=== PATIENT | female | born 1950 | race Hispanic/Latino ===

== ENCOUNTER 2019-11-24 08:00 | Observation (INO) | payer OTHER ==
[2019-11-18 15:33] LABS: BASOPHILS % (AUTO) 0.5 % (0.0-5.0); HEMATOCRIT 32.8 % (36-48); LYMPHOCYTES % (AUTO) 35.2 % (21.0-51.0); MEAN CORPUSCULAR HEMOGLOBIN 32.1 pg (27.0-33.0); MEAN CORPUSCULAR HGB CONC 34.8 g/dL (32.0-36.0); MEAN CORPUSCULAR VOLUME 92.4 fL (79-99); MONOCYTES % (AUTO) 7.9 % (3.0-13.0); NEUTROPHILS % (AUTO) 55.1 % (40.0-77.0); PLATELET COUNT (AUTO) 338 K/uL (130-400); RED BLOOD CELL COUNT(AUTO) 3.55 MIL/uL (4.00-5.50); RED CELL DISTRIBUTION WIDTH 13.2 % (11.0-15.5); WHITE BLOOD COUNT (AUTO) 7.4 K/uL (4.8-10.8)
[2019-11-18 15:42] LABS: CREATININE 0.8 mg/dL (0.5-1.5); POTASSIUM 4.1 mmol/L (3.5-5.1)
[2019-11-18 15:46] LABS: INR 1.01 (0.85-1.15); PARTIAL THROMBOPLASTIN TIME 28.3 SEC (26.3-35.5); PROTHROMBIN TIME 10.9 SEC (9.6-11.6)
[2019-11-18 15:51] LABS: APPEARANCE,URINE Clear (CLEAR); BILIRUBIN,URINE Negative (NEGATIVE); COLOR,URINE Yellow (YELLOW); GLUCOSE, URINE (UA) Negative (NEGATIVE); KETONES,URINE Negative (NEGATIVE); LEUKOCYTE ESTERASE ,URINE Negative (NEGATIVE); NITRATE,URINE Negative (NEGATIVE); OCCULT BLOOD,URINE Nonhemolyzed Trace (NEGATIVE); PROTEIN,URINE Negative (NEGATIVE); UROBILINOGEN,URINE 0.2 mg/dL (0.2-1.0)
[2019-11-18 16:18] LABS: BACTERIA,URINE Rare /HPF (None Seen); SQUAMOUS EPITHELIAL CELL,UR 0-2 /HPF (0-2); WBC,URINE 0-1 /HPF (0-1)
--- NOTE | 2019-11-23 11:30 | NUR ---
Ekg, BMP done 11/18/19 Dr Cote reviewed ekg and bmp, no new orders ok to proceed to planned procedure
[2019-11-23 13:50] VITALS: BP 165/64
--- NOTE | 2019-11-23 13:56 | NUR ---
BMP 11/18/[address] RASHID, NO NEW ORDERS PER SEDRICK
[~2019-11-24] VITALS: Ht 156.2 cm; Wt 57.2 kg
[2019-11-24] VITALS (24 sets, daily range): BP systolic 94–134; BP diastolic 51–79
[2019-11-24] MEDS: CEFAZOLIN SODIUM 1 GM VIAL IVP SCH ×3 (05:00→20:44)
[~2019-11-24 08:00] MED LIST: ALEN70TA10 PO; ASPI-1443 PO; CALC-190 PO; CALC600T15 PO; CHOL500045 PO; GENTAMICIN 80 MG/NS 100 ML PB 100 ML IV SCH; HYDR12.54 PO; IRON PEG; L.AC1CAP6 PO; MAGN250T10 PO; MONT10TA26 PO; OXYB10TA30 PO
[2019-11-24] MEDS ORDERED: SODIUM CHLORIDE 0.9% 1000ML 1,000 ML IV ONE (08:32)
[2019-11-24] MEDS ORDERED: LISI-617 PO (09:11)
[2019-11-24] MEDS ORDERED: SUCCINYLCHOLINE 200MG/10ML SYR ONE (11:13)
[2019-11-24] MEDS ORDERED: FENTANYL CITRATE PF 50 MCG/1 ML 2ML VIAL ONE (11:13)
[2019-11-24] MEDS ORDERED: PROPOFOL 10 MG/ML 20ML VIAL IV ONE (11:13)
[2019-11-24] MEDS ORDERED: LIDOCAINE PF 2% 5ML ABBOJECT ONE (11:13)
[2019-11-24] MEDS ORDERED: ROCURONIUM 10MG/1ML SYR 10 MG/ML ML ONE (11:24)
[2019-11-24] MEDS ORDERED: GLYCOPYRROLATE 1 MG/5 ML SYRINGE ONE (11:32)
[2019-11-24] MEDS ORDERED: LIDOCAINE 1%-EPI 1:100,000 20 ML VIAL IJ ONE (11:55)
[2019-11-24] MEDS ORDERED: ONDANSETRON HCL 4 MG/2 ML VIAL ONE (12:04)
[2019-11-24] MEDS ORDERED: DEXAMETHASONE SOD PHOSPHATE 4 MG/ML 1ML VIAL ONE (12:04)
[2019-11-24] MEDS ORDERED: ESTROGENS,CONJUGATED 0.625 MG/GM 42.5 GM VAG CRM VG ONE (13:20)
[2019-11-24] MEDS ORDERED: NEOSTIGMINE 5MG/5ML SYR IV ONE (13:33)
[2019-11-24] MEDS ORDERED: MORPHINE SULFATE 2 MG/ML 1ML SYG IVP PRN (15:30)
[2019-11-24] MEDS ORDERED: HYDROCODONE/ACETAMINOPHEN 7.5/325 MG TAB PO PRN ×2 (15:30)
[2019-11-24] MEDS ORDERED: SODIUM CHLORIDE 0.9% 1000ML 1,000 ML IV SCH (15:30)
--- NOTE | 2019-11-24 20:35 | NUR ---
STATUS RESTING , A,A,O, NO CONCERNS VOICED, REPOSITIONED TO LEFT SIDE, PILLOW PROPPED BETWEEN KNEES, COMFORTABLE, ENCOURAGED TO TCDB, AND TO CALL NURSE FOR ANY NEEDS Addendum: 11/25/19 at 0106 by MIGUEL JEFFERSON LVN Amended: Links added.
[2019-11-25 03:02] VITALS: BP 97/55
[2019-11-25] MEDS: CEFAZOLIN SODIUM 1 GM VIAL IVP SCH ×2 (03:59→12:00)
--- NOTE | 2019-11-25 06:15 | NUR ---
VAGINAL PACKING INDER CARE GIVEN, VAGINAL PACKING REMOVED, NO BLEEDING NOTED, TOLERATED WELL Addendum: 11/25/19 at 0640 by MIGUEL JEFFERSON LVN Amended: Links added.
[2019-11-25 08:10] VITALS: BP 115/70
--- NOTE | 2019-11-25 10:03 | NUR ---
PATIENT AMBULATING IN ROOM. NO DIZZINESS REPORTED. STEADY GAIT NOTED.
[2019-11-25 12:00] VITALS: BP 100/58
--- NOTE | 2019-11-25 12:05 | NUR ---
[id number] patient signed IM Letter, I faxed IM Letter to [phone] and placed in chart under consent tab. Addendum: 11/25/19 at 1209 by JORDYN CARRILLO CM Correction to previous note; Patient signed MORALES Letter. Morales Letter was faxed to [phone] and placed in chart under consent tab.
--- NOTE | 2019-11-25 13:20 | NUR ---
DISCHARGE INSTRUCTION READ AND EXPLAINED TO PATIENT. INSTRUCTION OVER INCISION CARE AND CATHETER CARE REVIEWED WITH PATIENT. RX FOR KEFLEX 500MG AND TRAMADOL 50MG HANDED TO PATIENT. PT VOICED UNDERSTANDING ON ALL INSTRUCTIONS.
== END 2019-11-25 13:50 | disposition home or self-care (01) ==
LOC: DAH 08:00 → WSH 08:01 → DAH 08:01 → WSH 14:55
PROVIDERS: ADMIT Urology; ATTEND Urology
DX: Z03.818 Encounter for observation for suspected exposure to other biological agents ruled out (principal); Z11.59 Encounter for screening for other viral diseases; N39.3 Stress incontinence (female) (male); N81.10 Cystocele, unspecified
CPT/HCPCS: 36415; 57288; 71045; 80048; 81001; 85025; 85610; 85730; 87088; 87635; 93005; 96365; 96375; 96376; A4213; A4215; A4221; A4222; A4223 ×2; A4344; A4600; A4663; A4930; A6260; G0378 ×17; J0330; J0690 ×3; J1100; J1580; J2001; J2405; J2704; J2710; J3010; J3490 ×2; J7030 ×2; J7120; L0625

== ENCOUNTER 2021-05-05 19:56 | Observation (INO) | payer OTHER ==
[~2021-05-05] VITALS: Ht 157.5 cm; Wt 52.7 kg
[~2021-05-05 19:56] MED LIST changes: -ALEN70TA10 PO; +ALEN70TA80 PO; +CALC-1125 PO; -CALC600T15 PO; -GENTAMICIN 80 MG/NS 100 ML PB 100 ML IV SCH; +LISI5TAB21 PO; +MONT-39 PO; -MONT10TA26 PO
[2021-05-05] MEDS ORDERED: PANTOPRAZOLE 40 MG/VIAL IVP ONE (21:00)
[2021-05-05] MEDS ORDERED: FAMOTIDINE 20MG VIAL IV ONE (21:00)
[2021-05-05] MEDS ORDERED: METOCLOPRAMIDE 10 MG/2 ML VIAL IVP ONE (21:00)
[2021-05-05] MEDS ORDERED: 0.9%NACL 1000ML 1,000 ML IV ONE (21:00)
[2021-05-05] MEDS ORDERED: ONDANSETRON 4MG INJ IVP ONE (21:00)
[2021-05-05 21:01] LABS: BASOPHILS % (AUTO) 0.5 % (0.0-5.0); EOSINOPHILS % (AUTO) 1.1 % (0.0-8.0); HEMATOCRIT 31.5 % (36-48); LYMPHOCYTES % (AUTO) 31.3 % (21.0-51.0); MEAN CORPUSCULAR HEMOGLOBIN 25.7 pg (27.0-33.0); MEAN CORPUSCULAR VOLUME 75.5 fL (79-99); PLATELET COUNT (AUTO) 440 K/uL (130-400); RED BLOOD CELL COUNT(AUTO) 4.17 MIL/uL (4.00-5.50); RED CELL DISTRIBUTION WIDTH 14.4 % (11.0-15.5); WHITE BLOOD COUNT (AUTO) 13.1 K/uL (4.8-10.8)
[2021-05-05 21:12] LABS: APPEARANCE,URINE Clear (CLEAR); BILIRUBIN,URINE Negative (NEGATIVE); COLOR,URINE Yellow (YELLOW); GLUCOSE, URINE (UA) Negative (NEGATIVE); KETONES,URINE Negative (NEGATIVE); LEUKOCYTE ESTERASE ,URINE Negative (NEGATIVE); NITRATE,URINE Negative (NEGATIVE); OCCULT BLOOD,URINE Negative (NEGATIVE); PH,URINE >=9.0 (5.0-8.0); PROTEIN,URINE Negative (NEGATIVE); UROBILINOGEN,URINE 0.2 mg/dL (0.2-1.0)
[2021-05-05 21:23] LABS: BACTERIA,URINE Rare /HPF (None Seen); RBC,URINE 0-1 /HPF (0-1); SQUAMOUS EPITHELIAL CELL,UR Rare /HPF (0-2); WBC,URINE 0-1 /HPF (0-1)
[2021-05-05 21:29] LABS: ALBUMIN 3.5 g/dL (3.5-5.0); BILIRUBIN,TOTAL 0.4 mg/dL (0.2-1.0); CREATININE 0.8 mg/dL (0.5-1.5); POTASSIUM 3.1 mmol/L (3.5-5.1); TOTAL PROTEIN, SERUM 7.6 g/dL (6.0-8.3)
[2021-05-05] MEDS ORDERED: IOHEXOL 350 MG/ML 100ML INFUS..BTL IV ONE (22:06)
[2021-05-06] MEDS ORDERED: POTASSIUM CHLORIDE 20MEQ/100ML 100 ML IV PRN (00:30)
[2021-05-06] MEDS ORDERED: GLUCAGON 1MG KIT 1 MG ML IM PRN (00:30)
[2021-05-06] MEDS ORDERED: HYDRALAZINE 20MG/ML VIAL IV PRN (00:30)
[2021-05-06] MEDS ORDERED: DEXTROSE 50%-WATER 50 ML DISP.SYRIN IV PRN (00:30)
[2021-05-06] MEDS ORDERED: LIDOCAINE HCL-MPF 1% 2ML VIAL IV PRN (00:30)
[2021-05-06] MEDS: 0.9%NACL 1000ML 1,000 ML IV SCH ×2 (01:02→12:15)
[2021-05-06] MEDS: ZOSYN 3.375GM +NS 50ML IV SCH ×3 (01:08→16:35)
[2021-05-06 01:10] LABS: CREATININE 0.6 mg/dL (0.5-1.5); MAGNESIUM 1.7 mg/dL (1.80-2.40); PHOSPHORUS 3.6 mg/dL (2.5-4.9); POTASSIUM 3.1 mmol/L (3.5-5.1)
[2021-05-06 03:30] VITALS: BP 133/56
[2021-05-06 06:24] LABS: BASOPHILS % (AUTO) 0.2 % (0.0-5.0); EOSINOPHILS % (AUTO) 0.8 % (0.0-8.0); HEMATOCRIT 31.2 % (36-48); LYMPHOCYTES % (AUTO) 22.5 % (21.0-51.0); MEAN CORPUSCULAR HEMOGLOBIN 24.9 pg (27.0-33.0); MEAN CORPUSCULAR HGB CONC 32.4 g/dL (32.0-36.0); MEAN CORPUSCULAR VOLUME 76.8 fL (79-99); MONOCYTES % (AUTO) 9.2 % (3.0-13.0); NEUTROPHILS % (AUTO) 66.3 % (40.0-77.0); PLATELET COUNT (AUTO) 361 K/uL (130-400); RED BLOOD CELL COUNT(AUTO) 4.06 MIL/uL (4.00-5.50); RED CELL DISTRIBUTION WIDTH 14.6 % (11.0-15.5); WHITE BLOOD COUNT (AUTO) 9.2 K/uL (4.8-10.8)
[2021-05-06 06:33] LABS: CREATININE 0.8 mg/dL (0.5-1.5); POTASSIUM 4.7 mmol/L (3.5-5.1)
[2021-05-06] MEDS: INSULIN HUMULIN R 100 UNIT/ML 3ML SQ SCH ×4 (06:35→20:55)
[2021-05-06 08:00] VITALS: BP 125/53
[2021-05-06] MEDS ORDERED: ASPIRIN 81 MG EC TAB PO SCH (09:00)
[2021-05-06] MEDS ORDERED: MAGNESIUM HYDROXIDE 30 ML/UDCUP PO PRN (09:00)
[2021-05-06] MEDS: METOCLOPRAMIDE 10 MG/2 ML VIAL IVP SCH ×3 (09:10→20:55)
[2021-05-06] MEDS: FAMOTIDINE 20MG TAB PO SCH ×2 (09:12→20:54)
[2021-05-06] MEDS: CA 600MG+VIT D 400 UNIT TAB 1 TAB TABLET PO SCH (09:17)
[2021-05-06] MEDS: LISINOPRIL 5 MG TABLET PO SCH (09:17)
[2021-05-06 12:00] VITALS: BP 134/64
[2021-05-06 12:36] LABS: CREATININE 0.8 mg/dL (0.5-1.5); POTASSIUM 3.9 mmol/L (3.5-5.1)
[2021-05-06 16:00] VITALS: BP 133/61
[2021-05-06 18:26] LABS: CREATININE 0.9 mg/dL (0.5-1.5); POTASSIUM 3.7 mmol/L (3.5-5.1)
[2021-05-06 20:19] VITALS: BP 135/62
[2021-05-06] MEDS ORDERED: MONTELUKAST SODIUM 10 MG TAB PO SCH (21:00)
[2021-05-06] MEDS ORDERED: OXYBUTYNIN CHLORIDE 5 MG TABLET PO SCH (21:00)
[2021-05-06 23:49] VITALS: BP 109/63
[2021-05-07] MEDS: ZOSYN 3.375GM +NS 50ML IV SCH ×2 (00:51→11:26)
[2021-05-07 04:09] VITALS: BP 117/67
[2021-05-07 04:22] LABS: HEMATOCRIT 31.9 % (36-48); MEAN CORPUSCULAR HEMOGLOBIN 25.4 pg (27.0-33.0); MEAN CORPUSCULAR HGB CONC 32.9 g/dL (32.0-36.0); MEAN CORPUSCULAR VOLUME 77.2 fL (79-99); RED BLOOD CELL COUNT(AUTO) 4.13 MIL/uL (4.00-5.50); WHITE BLOOD COUNT (AUTO) 7.3 K/uL (4.8-10.8)
[2021-05-07 04:36] LABS: CREATININE 0.9 mg/dL (0.5-1.5); POTASSIUM 3.8 mmol/L (3.5-5.1)
[2021-05-07] MEDS: INSULIN HUMULIN R 100 UNIT/ML 3ML SQ SCH ×2 (06:50→11:30)
[2021-05-07] MEDS: 0.9%NACL 1000ML 1,000 ML IV SCH (08:14)
[2021-05-07 08:32] VITALS: BP 144/61
[2021-05-07] MEDS: CA 600MG+VIT D 400 UNIT TAB 1 TAB TABLET PO SCH (09:00)
[2021-05-07] MEDS: METOCLOPRAMIDE 10 MG/2 ML VIAL IVP SCH ×2 (09:00→14:00)
[2021-05-07] MEDS ORDERED: CALCIUM CARB 500MG PO SCH (09:00)
[2021-05-07] MEDS ORDERED: LACTOBACILLUS RHAMNOSUS GG 1 EACH CAP.SPRINK PO SCH (09:00)
[2021-05-07] MEDS: LISINOPRIL 5 MG TABLET PO SCH (09:00)
[2021-05-07 11:06] VITALS: BP 168/56
[2021-05-07] MEDS: FAMOTIDINE 20MG TAB PO SCH (11:25)
[2021-05-10] MEDS ORDERED: IRON 25 MG PEG SCH (09:00)
[2021-05-13] MEDS ORDERED: Alendronate Sodium 70 MG PO SCH (09:00)
== END 2021-05-07 15:45 | disposition home or self-care (01) ==
LOC: EDH 19:56 → EDHIP 05-06 00:21 → 3CH 05-06 02:19
PROVIDERS: ADMIT Internal Medicine; ATTEND Internal Medicine
DX: E87.1 Hypo-osmolality and hyponatremia (principal); Z20.822 Contact with and (suspected) exposure to COVID-19; I10 Essential (primary) hypertension; K76.0 Fatty (change of) liver, not elsewhere classified; E86.0 Dehydration; E87.8 Other disorders of electrolyte and fluid balance, not elsewhere classified; R10.9 Unspecified abdominal pain; R11.10 Vomiting, unspecified; R54 Age-related physical debility; Z90.710 Acquired absence of both cervix and uterus; Z90.49 Acquired absence of other specified parts of digestive tract; Z90.721 Acquired absence of ovaries, unilateral
CPT/HCPCS: 36415 ×3; 71275; 74018; 74177; 80048 ×5; 80053; 81001; 82948 ×5; 83605; 83690; 83735; 83880; 84100; 84484; 85025 ×2; 85027; 87040 ×2; 87077; 87088; 87186; 87635; 87804 ×2; 93005; 96361 ×2; 96365; 96366 ×3; 96375 ×3; 96376; 99285; C9113; C9803; G0378 ×40; J0360; J2405; J2543 ×5; J2765 ×4; J3480; J3490 ×2; Q9967

== ENCOUNTER → 2022-03-20 | Outpatient (CLI) | payer OTHER ==
[~2022-03-20] MED LIST changes: -HYDR12.54 PO
== END | disposition home or self-care (01) ==
LOC: RAH 07:29
PROVIDERS: ATTEND Family Medicine
DX: N18.2 Chronic kidney disease, stage 2 (mild) (principal); R80.9 Proteinuria, unspecified
CPT/HCPCS: 76770; 93975

== ENCOUNTER → 2022-05-06 | Outpatient (CLI) | payer OTHER ==
[2022-05-06 12:53] LABS: CREATININE 0.8 mg/dL (0.5-1.5)
== END | disposition home or self-care (01) ==
LOC: LAB 08:15
PROVIDERS: ATTEND Internal Medicine
DX: I10 Essential (primary) hypertension (principal); I70.1 Atherosclerosis of renal artery
CPT/HCPCS: 36415; 80048; 80061

== ENCOUNTER → 2022-05-26 | Outpatient (CLI) | payer OTHER | END | disposition home or self-care (01) | LOC: SHCH 14:33 | PROVIDERS: ATTEND Internal Medicine Cardiovascular Disease | DX: I08.8 Other rheumatic multiple valve diseases (principal); I10 Essential (primary) hypertension; E78.5 Hyperlipidemia, unspecified | CPT/HCPCS: 93306 ==

== ENCOUNTER 2023-07-14 09:40 | Emergency (ER) | payer OTHER ==
[~2023-07-14] VITALS: Ht 167.6 cm; Wt 86.2 kg
[2023-07-14] MEDS ORDERED: 0.9%NACL 1000ML 1,000 ML IV ONE (10:00)
[2023-07-14] MEDS ORDERED: METOCLOPRAMIDE 10 MG/2 ML VIAL IVP ONE (10:00)
[2023-07-14] MEDS ORDERED: MORPHINE 2 MG SYG IVP ONE (10:00)
[2023-07-14 10:27] LABS: BASOPHILS # (AUTO) 0.03 K/uL (0.00-0.20); BASOPHILS % (AUTO) 0.4 % (0.0-5.0); EOSINOPHILS # (AUTO) 0.17 K/uL (0.00-0.70); HEMATOCRIT 39.6 % (36-48); IMMATURE GRANULOCYTE ABSOLUTE 0.12 K/uL (0-1); LYMPHOCYTES # (AUTO) 1.2 K/uL (1.0-4.8); LYMPHOCYTES % (AUTO) 14.1 % (21.0-51.0); MEAN CORPUSCULAR HGB CONC 33.8 g/dL (32.0-36.0); MEAN CORPUSCULAR VOLUME 94.5 fL (79-99); MONOCYTES % (AUTO) 11.7 % (3.0-13.0); NEUTROPHILS # (AUTO) 5.9 K/uL (1.8-7.7); NEUTROPHILS % (AUTO) 70.4 % (40.0-77.0); PLATELET COUNT (AUTO) 242 K/uL (130-400); RED BLOOD CELL COUNT(AUTO) 4.19 MIL/uL (4.00-5.50); RED CELL DISTRIBUTION WIDTH 12.5 % (11.0-15.5); WHITE BLOOD COUNT (AUTO) 8.3 K/uL (4.8-10.8)
[2023-07-14 10:35] LABS: INR 0.97 (0.85-1.15); PROTHROMBIN TIME 11.3 SEC (9.6-11.6)
[2023-07-14 10:36] LABS: PARTIAL THROMBOPLASTIN TIME 31.3 SEC (26.3-35.5)
[2023-07-14 10:58] LABS: ALBUMIN 3.4 g/dL (3.5-5.0); BILIRUBIN,TOTAL 0.3 mg/dL (0.2-1.0); CREATININE 0.9 mg/dL (0.5-1.5); POTASSIUM 3.4 mmol/L (3.5-5.1); TOTAL PROTEIN, SERUM 7.4 g/dL (6.0-8.3)
[2023-07-14] MEDS ORDERED: CEFTRIAXONE 2GM VIAL IVPB ONE (11:00)
[2023-07-14] MEDS ORDERED: AMOX-427 PO (11:21)
[2023-07-14] MEDS ORDERED: FLUT16H NASAL (11:21)
[2023-07-14 12:04] VITALS: BP 134/66; PULSE 71; RESP 18; O2SAT 99
[2023-07-14 12:09] LABS: APPEARANCE,URINE CLEAR (CLEAR); BILIRUBIN,URINE NEGATIVE (NEGATIVE); COLOR,URINE COLORLESS (YELLOW); GLUCOSE, URINE (UA) NEGATIVE (NEGATIVE); KETONES,URINE NEGATIVE (NEGATIVE); LEUKOCYTE ESTERASE ,URINE 75 Leu/uL (NEGATIVE); NITRATE,URINE NEGATIVE (NEGATIVE); OCCULT BLOOD,URINE NEGATIVE (NEGATIVE); PROTEIN,URINE NEGATIVE (NEGATIVE); UROBILINOGEN,URINE 0.2 mg/dL (0.2-1.0)
[2023-07-14 12:12] LABS: ADD UA MICROSCOPIC YES
[2023-07-14 12:18] LABS: BACTERIA,URINE FEW /HPF (None Seen); RBC,URINE 0-1 /HPF (0-1); SQUAMOUS EPITHELIAL CELL,UR RARE /HPF (0-2)
[2023-07-14] MEDS ORDERED: AMLO2.5T4 PO (23:49)
[2023-07-14] MEDS ORDERED: LISI20TA24 PO (23:49)
[2023-07-14] MEDS ORDERED: ROSU5TAB12 PO (23:49)
[2023-07-16] MEDS ORDERED: VIT500TA8 PO (02:30)
[2023-07-16] MEDS ORDERED: FOLI0.8T3 PO (02:30)
[2023-07-16] MEDS ORDERED: MAGN400C PO (02:30)
[2023-07-16] MEDS ORDERED: ATOR20TA65 PO (02:30)
[2023-07-16] MEDS ORDERED: VIT1TABL69 PO (02:30)
[2023-07-16] MEDS ORDERED: FERR-82 PO (02:30)
== END 2023-07-14 12:09 | disposition home or self-care (01) ==
LOC: EDH 09:40
DX: E87.1 Hypo-osmolality and hyponatremia (principal); E87.6 Hypokalemia; J32.9 Chronic sinusitis, unspecified; I10 Essential (primary) hypertension; W18.39XA Other fall on same level, initial encounter; Y93.89 Activity, other specified; Y92.89 Other specified places as the place of occurrence of the external cause; Y99.8 Other external cause status
CPT/HCPCS: 99285; 70450; 96365; 71045; 96375; 96361; 82550; 84484; 80053; 85025; 85610; 85730; 87040 ×2; 87077; 87088; 87186; 83605; 81001; 36415; 72170; 72125; 70486; 93005; J2270; J7030; J0696; J2765

== ENCOUNTER → 2024-09-10 | Outpatient (CLI) | payer OTHER ==
[~2024-09-10] MED LIST changes: -ALEN70TA80 PO; +AMLO2.5T4 PO; +AMOX-427 PO; -ASPI-1443 PO; +ATOR20TA65 PO; -CALC-1125 PO; +FERR-82 PO; +FLUT16H NASAL; +FOLI0.8T3 PO; -IRON PEG; -L.AC1CAP6 PO; +LISI20TA24 PO; -LISI5TAB21 PO; -MAGN250T10 PO; +MAGN400C PO; -OXYB10TA30 PO; +ROSU5TAB51 PO; +VIT1TABL69 PO; +VIT500TA8 PO
--- NOTE | 2024-09-13 12:22 | HMCSR ---
APPROVED REPORT Indications i10 Renal Artery Doppler Proximal (R) 71.0/21.3 cm/secProximal (L) 27.3/10.0 cm/sec Mid (R) 55.6/23.7 cm/secMid (L) 35.8/8.1 cm/sec Distal (R) 544.0/15.4 cm/secDistal (L) 38.5/7.7 cm/sec Renal/Aorta Ratio (R) 1.02Renal Aorta Ratio (L) 0.55 Resistive Index (R) 0.71Resistive Index (L) 0.64 Segmental A. (R) 19.0/5.5 cm/secLt. Segmental A. (L) 22.7/8.1 cm/sec Renal Measurements Kidney Size (R) 9.6x4.9x5.0 cmKidney Size (L)10.1x4.3x5.0 cm Aortic Doppler VelocityWaveform Proximal Aorta 69.8 cm/sec Technologist Impression Based on the renal/aortic ratio there is no evidence of significant stenosis in the right and/or left renal arteries. Both kidneys appear to be within normal size parameters (greater than 9.0cm and symmetrical). Conclusion Based on the renal/aortic ratio there is no evidence of significant stenosis in the right and/or left renal arteries. Both kidneys appear to be within normal size parameters (greater than 9.0cm and symmetrical). Conclusion Based on the renal/aortic ratio there is no evidence of significant stenosis in the right and/or left renal arteries. Both kidneys appear to be within normal size parameters (greater than 9.0cm and symmetrical).
== END | disposition home or self-care (01) ==
LOC: SHCH 07:35
PROVIDERS: ATTEND Internal Medicine
DX: I10 Essential (primary) hypertension (principal)
CPT/HCPCS: 93975

== ENCOUNTER → 2025-01-19 | Outpatient (CLI) | payer OTHER ==
--- NOTE | 2025-01-19 14:33 | HMCIMG ---
Exam: NONCONTRAST CT BRAIN REASON: Headache, unspecified. COMPARISON: None. TECHNIQUE: Images are obtained from vertex to the skull base. The exam was performed without IV contrast. FINDINGS: There is normal appearing brain parenchyma. There are no focal mass lesions. There is is no evidence of intracranial hemorrhage or acute stroke. Global atrophy with periventricular ischemic white matter changes. Ventricles and sulci appear normal. Posterior fossa and brainstem structures are unremarkable. Paranasal sinuses demonstrate near complete opacification of the left maxillary air cell. Remaining paranasal sinuses are well aerated.. The remaining extracranial soft tissues appear normal as well. IMPRESSION: 1. No acute process seen in noncontrast CT of the head 2. Near complete opacification of the left maxillary air cell suggesting of sinusitis CT was performed with one or more following dose reduction techniques: automated exposure control, adjustment of the mA and kv according to patient's size, or use of a iterative reconstruction technique.
== END | disposition home or self-care (01) ==
LOC: RAH 12:46
PROVIDERS: ATTEND Internal Medicine
DX: J34.89 Other specified disorders of nose and nasal sinuses (principal); G31.89 Other specified degenerative diseases of nervous system; R90.82 White matter disease, unspecified; R51.9 Headache, unspecified
CPT/HCPCS: 70450